=== PATIENT | male | born 1995 | race Caucasian/White ===

== ENCOUNTER 2020-01-13 17:52 | Emergency (ER) | payer BC, SELFPAY ==
[2020-01-13 18:05] VITALS: BP 149/82; PULSE 89; RESP 16; TEMP 37.1; O2SAT 98; BMI 28.1
[2020-01-13 18:13] VITALS: RESP 17
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
[2020-01-13 18:47] VITALS: BP 122/75; PULSE 89; RESP 16; O2SAT 96
== END 2020-01-13 18:47 | disposition home or self-care (01) ==
PROVIDERS: Emergency Provider Nurse Practitioner Family; Family Provider Registered Nurse; PCP Registered Nurse
DX: S39.012A Strain of muscle, fascia and tendon of lower back, initial encounter (principal); F17.200 Nicotine dependence, unspecified, uncomplicated; X58.XXXA Exposure to other specified factors, initial encounter
CPT/HCPCS: 12345; 99282

== ENCOUNTER 2020-05-16 08:07 | Emergency (ER) | payer BC, SELFPAY ==
[2020-05-16 08:14] VITALS: BMI 25.9
[2020-05-16 08:16] VITALS: BP 118/75; PULSE 80; RESP 16; TEMP 36.8; O2SAT 98
--- NOTE | 2020-05-16 09:00 | ED_ITS ---
HPI - Skin/Abscess/Foreign Bdy General: Chief complaint: Skin/Abscess/Foreign Body Stated complaint: RASH ALL OVER Time Seen by Provider: 05/16/20 08:21 Review of Systems General: Reports: 10 or more systems reviewed and unremarkable except in HPI and below Skin/Breast: Reports: rash (lower extremities and upper arms; burning sensation ), pruritus, skin swelling and sores PFSH ED PFSH: Social History Smoking and tobacco status: current every day smoker Physical Exam Const: COMMON NORMALS: no acute distress, patient oriented x3, no limitations and alert GENERAL APPEARANCE: cooperative and comfortable ORIENTATION/CONSCIOUSNESS: Yes awake, Yes oriented to person, Yes oriented to place and Yes oriented to time HENMT: COMMON NORMALS: normocephalic, atraumatic, external ears normal, EAC's normal, TM's normal bilaterally and Normal external nose present HEAD & SCALP: normal to inspection, normocephalic and atraumatic FACE & SINUS: normal facial exam, sinuses nontender and face symmetric NOSE: Normal external nose present, Normal nares present and No nasal discharge present EXTERNAL EAR: Yes external ears normal EXTERNAL AUDITORY CANAL: EAC's normal TYMPANIC MEMBRANE: TM's normal bilaterally MOUTH: Normal oral and palatal mucosa present, lip normal and tongue normal THROAT: posterior oropharynx normal, tonsils normal and uvula midline Eye: COMMON NORMALS: Equal, round and reactive pupils present, EOMs intact bilaterally and conjunctivae normal GENERAL EYE: appearance normal, both eyes and all related structures and normal light reflex EYELID: eyelids normal CONJUNCTIVA: Yes conjunctivae normal PUPIL: Yes Equal, round and reactive pupils present EOM: Yes EOM abnormal DIRECT OPHTHALMOSCOPY: Yes normal light reflex Neck/C-Spine: COMMON NORMALS: full ROM, no lymphadenopathy, supple, no meningeal signs, no JVD and Thyroid normal GENERAL: Yes normal visual inspection THYROID: Thyroid normal CERVICAL SPINE: Yes cervical ROM normal and Yes normal cervical lordosis Lymph: LYMPHATIC: no lymphadenopathy noted Chest: COMMONS NORMALS: normal inspection of the chest and normal palpation of entire chest wall Resp: COMMON NORMALS: normal respiratory effort, No retractions and clear to auscultation bilaterally AUSCULTATION: clear to auscultation bilaterally Cardio: COMMON NORMALS: no JVD, regular rate, regular rhythm, S1 normal heart sound present, S2 normal heart sound present, No gallops present (Cardio), No clicks present (Cardio), No murmurs present (Cardio), No rub (Cardio) and Peripheral pulses 2+ throughout RATE: regular rate RHYTHM: regular rhythm HEART SOUNDS: S1 normal heart sound present and S2 normal heart sound present PERIPHERAL PULSES: Peripheral pulses 2+ throughout GI: COMMON NORMALS: Normal to inspection, nondistended, normoactive bowel sounds present, Soft to palpation, non-tender and no masses PALPATION: Yes Soft to palpation : COMMON NORMALS: Yes no CVA tenderness BLADDER/KIDNEY EXAM: Yes no CVA tenderness Back/Pelvis: COMMON NORMALS: no CVA tenderness, thoracic and lumbar spine normal to inspection, no thoracic nor lumbar tenderness and thoraco-lumbar ROM normal Extremity: COMMON NORMALS: normal to inspection, full ROM, capillary refill normal, no joint enlargement, no clubbing, cyanosis or edema, no calf tenderness and no pedal edema GENERAL: Yes normal exam except as noted Neuro: COMMON NORMALS: patient oriented x3, moves all extremities, no focal motor deficits, no sensory deficits noted and gait normal SENSORIUM/ORIENTATION: Yes alert, Yes oriented to person, Yes oriented to place and Yes oriented to time MENINGEAL SIGNS: Yes no meningeal signs Psych: COMMON NORMALS: mental status grossly normal, Normal thought process present, cooperative, normal affect, speech normal and activity/motor behavior normal SPEECH: Yes normal speech THOUGHT PROCESS: Normal thought process present Skin: COMMON NORMALS: no wounds and turgor normal GENERAL SKIN EXAM: turgor normal RASHES: rashes noted (lower extremities; follicular pustules and flattened lesions on BLE) Course ED course: Pt has been working outside; 4 days ago developed a rash on lower extremities that had a burning sensaton. He covered the area and today presents with a flattened lesion on the right anterior cedeño of the lower leg and follicular pustules. Based on his explanation, I anticipate he was exposed to poison sumac. We will treat accordingly and follow up with dermatology if needed. Vital Signs: Vital signs: Vital Signs Temperature 98.3 F 05/16/20 08:16 Pulse Rate 80 05/16/20 08:16 Respiratory Rate 16 05/16/20 08:16 Blood Pressure 118/75 05/16/20 08:16 Pulse Oximetry 98 05/16/20 08:16 Discharge Plan Discharge Patient Disposition: Home Clinical Impression: Contact dermatitis Condition: Stable Prescriptions: New Medrol (Karri) 4 mg tablets,dose pack See Rx Instructions .ROUTE .COMPLEX Qty: 21 RF: 0 Keflex 250 mg capsule 250 mg PO Q6H 7 Days Qty: 28 RF: 0 Referrals: Bhavana Beltran [Primary Care Provider] - Lizzy Arauz DO [Physician] - Discharge Diet: Usual diet Discharge Activity: Resume usual activity Activity Restrictions/Additional Instructions: Please follow up with Metal Neutralizer if persists after steroids. Likely Poison [place]ac exposure Coding Level of Care Code ED Cable Testers Helper for Josey Arrington
[2020-05-16] MEDS: dexamethasone 10 mg/mL INJ 6 MG IM (09:10)
== END 2020-05-16 09:16 | disposition home or self-care (01) ==
PROVIDERS: Emergency Provider Nurse Practitioner Family; PCP Registered Nurse
DX: L25.9 Unspecified contact dermatitis, unspecified cause (principal); F17.210 Nicotine dependence, cigarettes, uncomplicated
CPT/HCPCS: 12345; 96372; 99281; 99283; J1100

== ENCOUNTER 2021-02-19 21:10 | Emergency (ER) | payer SELFPAY ==
[2021-02-19 21:16] VITALS: BP 156/81; PULSE 77; RESP 18; TEMP 36.9; O2SAT 99; BMI 26.4
--- NOTE | 2021-02-19 22:26 | ED_ITS ---
HPI - Skin/Abscess/Foreign Bdy General: Chief complaint: Skin/Abscess/Foreign Body Stated complaint: L ARM RASH Time Seen by Provider: 02/19/21 21:46 Source: patient Mode of arrival: ambulatory Limitations: no limitations History of Present Illness: HPI narrative: Patient presents to the emergency department with complaints of poison stacia to the left upper extremity and torso. He states got into poison stacia couple of days ago while cutting down some trees. Similar reaction in the past is requesting steroids. MD complaint: rash Location: LUE Severity: moderate Relieving factors: none Exacerbating factors: none Associated symptoms: Reports itching; Deny chills, fever(s), nausea or vomiting Treatments prior to arrival: OTC topical medication Review of Systems General: Reports: 10 or more systems reviewed and unremarkable except in HPI and below Const: Denies: fever(s), chills or diaphoresis Eyes: Denies: blurry vision or eye redness ENMT: Denies: throat pain, dental pain or disequilibrium Card: Denies: chest pain, palpitations or irregular heart rhythm Resp: Denies: dyspnea, productive cough, non-productive cough or wheezing GI: Denies: abdominal pain, nausea or vomiting : Denies: dysuria Musc: Denies: neck pain, back pain, joint pain or joint warmth Skin/Breast: Reports: rash and changes in skin color; Denies: pruritus or skin tenderness Neuro: Denies: headache(s), weakness in extremities or behavioral changes Jarek/Lymph: Denies: easy bruising PFSH ED PFSH: Social History Smoking and tobacco status: current every day smoker Physical Exam Const: COMMON NORMALS: no acute distress, patient oriented x3, healthy appearing and alert GENERAL APPEARANCE: cooperative, comfortable and well hydrated HENMT: COMMON NORMALS: normocephalic, Normal external nose present and moist oral mucous membranes HEAD & SCALP: normocephalic NOSE: Normal external nose present Eye: COMMON NORMALS: Equal, round and reactive pupils present and EOMs intact bilaterally GENERAL EYE: appearance normal, both eyes and all related structures PUPIL: Yes Equal, round and reactive pupils present Neck/C-Spine: COMMON NORMALS: full ROM and no lymphadenopathy GENERAL: Yes normal visual inspection and Yes trachea midline CERVICAL SPINE: Yes cervical ROM normal Lymph: LYMPHATIC: no lymphadenopathy noted Chest: COMMONS NORMALS: normal inspection of the chest Resp: COMMON NORMALS: normal respiratory effort and clear to auscultation bilaterally AUSCULTATION: clear to auscultation bilaterally Cardio: COMMON NORMALS: regular rhythm, S1 normal heart sound present and S2 normal heart sound present RHYTHM: regular rhythm HEART SOUNDS: S1 normal heart sound present and S2 normal heart sound present GI: COMMON NORMALS: Soft to palpation and non-tender INSPECTION: Yes normal to inspection PALPATION: Yes Soft to palpation : COMMON NORMALS: Yes no CVA tenderness BLADDER/KIDNEY EXAM: Yes no CVA tenderness Back/Pelvis: COMMON NORMALS: no CVA tenderness and thoracic and lumbar spine normal to inspection Extremity: COMMON NORMALS: normal to inspection and capillary refill normal Neuro: COMMON NORMALS: patient oriented x3 and no focal motor deficits SENSORIUM/ORIENTATION: Yes alert Psych: COMMON NORMALS: mental status grossly normal, Normal thought process present and cooperative ACTIVITY/MOTOR BEHAVIOR: Yes appropriate eye contact THOUGHT PROCESS: Normal thought process present Skin: COMMON NORMALS: no wounds, turgor normal, no petechiae and no mottling GENERAL SKIN EXAM: turgor normal RASHES: rashes noted (Maculopapular, linear, patchy left upper extremity and torso, pustules ) Course Vital Signs: Vital signs: Vital Signs Temperature 98.5 F 02/19/21 21:16 Pulse Rate 77 02/19/21 21:16 Respiratory Rate 16 02/19/21 22:43 Blood Pressure 156/81 02/19/21 21:16 Pulse Oximetry 99 02/19/21 21:16 MDM - Skin/Abscess/Foreign Bdy Differential Diagnosis: Skin/Abscess Differential Diagnosis: Likely abscess of skin or subcutaneous tissue, urticaria, cellulitis and contact dermatitis Discharge Plan Discharge Patient Disposition: Home Clinical Impression: Poison stacia Contact dermatitis Qualifiers: Contact dermatitis type: allergic Contact dermatitis trigger: other trigger Qualified Code(s): L23.89 - Allergic contact dermatitis due to other agents Condition: Stable Prescriptions: New Medrol (Karri) 4 mg tablets,dose pack See Rx Instructions .ROUTE .COMPLEX Qty: 21 RF: 0 Discontinued methylprednisolone [Medrol (Karri)] 4 mg tablets,dose pack See Rx Instructions .ROUTE .COMPLEX Qty: 21 RF: 0 Discharge Orders: Discharge ED (Routine); Ordered 02/19/21 Ordered By: Franci Hernandez Referrals: Bhavana Beltran [Primary Care Provider] - Discharge Diet: Usual diet Discharge Activity: Resume usual activity Patient Instructions: Poison Stacia (ED), Opioid Safety Activity Restrictions/Additional Instructions: Cool compresses to the rash to help prevent itching Avoid hot showers Continue loratadine 10 mg once daily Take steroids until gone as directed Follow-up with your primary care provider if rash does not improve in the next 48 to 72 hours Coding Level of Care Code ED County Nurse for Chg Fwd Exam Comprehensive
[2021-02-19] MEDS: predniSONE 20 mg Tablet PO (22:39)
[2021-02-19 22:43] VITALS: RESP 16
== END 2021-02-19 22:44 | disposition home or self-care (01) ==
PROVIDERS: Emergency Provider Nurse Practitioner Family; PCP Registered Nurse
DX: L23.7 Allergic contact dermatitis due to plants, except food (principal); L23.89 Allergic contact dermatitis due to other agents; F17.210 Nicotine dependence, cigarettes, uncomplicated
CPT/HCPCS: 99283; J7512

== ENCOUNTER 2021-02-22 17:26 | Emergency (ER) | payer SELFPAY ==
[2021-02-22 18:03] VITALS: BP 132/78; PULSE 71; RESP 16; TEMP 36.5; O2SAT 99
--- NOTE | 2021-02-22 18:21 | XRR_ITS ---
PROCEDURE INFORMATION: Exam: XR Right Hand Exam date and time: 02/22/2021 6:29 PM Age: 25 years old Clinical indication: Injury or trauma; Other: Right hand lac; Work related; Laceration; Injury date: 02/22/2021; Additional info: Laceration to hand TECHNIQUE: Imaging protocol: XR Right hand. Views: 3 or more views. COMPARISON: No relevant prior studies available. FINDINGS: Bones/joints: No fracture or dislocation. Soft tissues: No radiopaque subcutaneous foreign body is seen.. XR/XR hand RT min 3V* [id number] IMPRESSION: No fracture, dislocation or radiopaque subcutaneous foreign body
--- NOTE | 2021-02-22 20:12 | W.ED.WOUNDLC ---
HPI - Wound/Laceration General: Chief Complaint: Wound/Laceration Stated Complaint: R HAND WOUND/LACERATION Time Seen by Provider: 02/22/21 19:25 History of Present Illness: HPI narrative: Patient is a 25-year-old male comes to the ED with laceration on right hand. Laceration is on the dorsal aspect of the right thumb. 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 He then applied pressure and a bandage on laceration to control bleeding and came to the ED. Associated symptoms: Denies chills, fever(s), nausea or vomiting Review of Systems Const: Denies: fever(s), chills or fatigue Eyes: Denies: change in vision or eye discomfort ENMT: Denies: throat pain, odynophagia, nasal discharge or nasal congestion Card: Denies: chest pain, palpitations, edema, swelling of feet/ankles, dyspnea on exertion or orthopnea Resp: Denies: dyspnea, productive cough or non-productive cough GI: Denies: abdominal pain, nausea, vomiting, diarrhea, constipation or hematochezia : Denies: flank pain, difficulty urinating, dysuria or hematuria Musc: Denies: neck pain, back pain or extremity swelling Skin/Breast: Reports: new lesions (laceration on right thumb); Denies: rash Neuro: Denies: headache(s), numbness in extremities or weakness in extremities [facility] ED PFSH: Social History Smoking and tobacco status: current every day smoker Physical Exam Const: COMMON NORMALS: no acute distress, patient oriented x3, healthy appearing and alert GENERAL APPEARANCE: cooperative and comfortable HENMT: COMMON NORMALS: normocephalic HEAD & SCALP: normocephalic MOUTH: Normal oral and palatal mucosa present THROAT: posterior oropharynx normal and uvula midline Neck/C-Spine: COMMON NORMALS: supple GENERAL: Yes normal visual inspection Resp: COMMON NORMALS: normal respiratory effort, No retractions, No use of accessory muscles and clear to auscultation bilaterally AUSCULTATION: clear to auscultation bilaterally Cardio: COMMON NORMALS: regular rate, regular rhythm, S1 normal heart sound present, S2 normal heart sound present, No gallops present (Cardio), No clicks present (Cardio), No murmurs present (Cardio) and Peripheral pulses 2+ throughout RATE: regular rate RHYTHM: regular rhythm HEART SOUNDS: S1 normal heart sound present and S2 normal heart sound present PERIPHERAL PULSES: Peripheral pulses 2+ throughout GI: COMMON NORMALS: Normal to inspection, nondistended, normoactive bowel sounds present, Soft to palpation, non-tender and no masses PALPATION: Yes Soft to palpation : COMMON NORMALS: Yes no CVA tenderness BLADDER/KIDNEY EXAM: Yes no CVA tenderness Back/Pelvis: COMMON NORMALS: no CVA tenderness Extremity: NARRATIVE EXTREMITY EXAM: Right hand dorsal aspect of thumb?1.5 cm superficial flap shaped laceration. No active bleeding. Clean and not contaminated. Neurovascular intact and full range of motion in hand and fingers. GENERAL: Yes normal exam except as noted Neuro: COMMON NORMALS: patient oriented x3 and moves all extremities SENSORIUM/ORIENTATION: Yes alert Skin: NARRATIVE SKIN EXAM: Right hand dorsal aspect of thumb?1.5 cm superficial flap shaped laceration. No active bleeding. Clean and not contaminated. GENERAL SKIN EXAM: dry skin Procedures Laceration Laceration 1: Site: hand (dorsal side of right thumb) Side (If applicable): right Size (cm): 1.5 Description: flap and clean Depth: simple, single layer Local Anesthetic: lidocaine 1% Amount of anesthesia used (mL): 10 Pre-repair: irrigated extensively (With normal saline and cleaned skin with alcohol swab.) Skin layer closed with: vicryl Size (cm): 4-0 Number of sutures: 5 Technique: simple, interrupted Course Vital Signs: Vital signs: Vital Signs Temperature 97.7 F 02/22/21 18:03 Pulse Rate 71 02/22/21 18:03 Respiratory Rate 16 02/22/21 20:20 Blood Pressure 132/78 02/22/21 18:03 Pulse Oximetry 99 02/22/21 18:03 Discharge Plan Discharge Patient Disposition: Home Clinical Impression: Laceration Condition: Stable Prescriptions: New cephalexin 500 mg capsule 500 mg PO Q6H 3 Days Qty: 12 RF: 0 No Action Medrol (Karri) 4 mg tablets,dose pack See Rx Instructions .ROUTE .COMPLEX Qty: 21 RF: 0 Discharge Orders: Discharge ED (Routine); Ordered 02/22/21 Ordered By: Heri Salamanca Referrals: Bhavana Beltran [Primary Care Provider] - Discharge Diet: Regular Discharge Activity: Limit activity as instructed Patient Instructions: Suture Care (ED), Laceration (ED) Activity Restrictions/Additional Instructions: Take full course of antibiotics as prescribed. Keep laceration site clean and dry for the next 48 hours. Then after that you can clean and re-bandage daily. Watch for signs of infection such as redness, warmth, increased tenderness and puslike drainage. If you see the signs of infection return to the ED, urgent care or PCP for reevaluation. call your PCP to schedule a follow-up appointment for reevaluation and suture removal in about 7- 10 days. Take [id number] Tylenol or ibuprofen for any pain.. Follow discharge plans as discussed. You can return to the ED if symptoms worsen. Stand Alone Forms: Work/School Release Coding Level of Care Code ED Assembler Lay Ups for Josey Fwd Exam Comprehensive
[2021-02-22 20:20] VITALS: RESP 16
== END 2021-02-22 20:20 | disposition home or self-care (01) ==
PROVIDERS: Emergency Provider Physician Assistant; PCP Registered Nurse
DX: S61.011A Laceration without foreign body of right thumb without damage to nail, initial encounter (principal); W26.9XXA Contact with unspecified sharp object(s), initial encounter; F17.210 Nicotine dependence, cigarettes, uncomplicated
CPT/HCPCS: 12001; 73130; 99282

== ENCOUNTER 2021-11-18 15:02 | Emergency (ER) | payer SELFPAY ==
--- NOTE | 2021-11-18 15:16 | XR_ITS ---
WS: [id number] LEFT HAND: 3 VIEW(S) TECHNIQUE: PA, oblique and lateral. HISTORY: injury COMPARISON: None available. No acute fracture or dislocation. No soft tissue or bone abnormality. XR/XR hand LT min 3V* [id number] IMPRESSION: Normal LEFT hand.
[2021-11-18 15:34] VITALS: BP 161/86; PULSE 84; RESP 16; TEMP 36.9; O2SAT 100
--- NOTE | 2021-11-18 15:47 | W.ED.WOUNDLC ---
HPI - Wound/Laceration General: Chief Complaint: Wound/Laceration Stated Complaint: LEFT HAND INJURY Time Seen by Provider: 11/18/21 15:47 Source: patient Mode of arrival: ambulatory Limitations: no limitations History of Present Illness: Patient is a 26-year-old male who presents to ED today for evaluation of a left thumb laceration that he sustained just prior to arrival after he cut it on a piece of metal. Tetanus is UTD. Patient maintains full range of motion of his thumb. Onset (ago): hour(s) Extremity Location: Left: hand (L thumb) Place: home Patient tetanus UTD: Yes Context: accidental Associated symptoms: Reports no associated symptoms Review of Systems Musc: Reports: extremity pain (L thumb); Denies: extremity swelling, joint pain, joint swelling or joint redness Skin/Breast: Reports: other (laceration L thumb) PFSH ED PFSH: Social History Smoking and tobacco status: current every day smoker Physical Exam Const: COMMON NORMALS: no acute distress, no limitations, healthy appearing and alert Extremity: GENERAL: Yes normal exam except as noted LEFT UPPER EXTREMITY: Yes hand & digits (pt with small 1cm laceration overlying dorsal interphalangeal joint) Left hand and digits: Yes special tests (no tendon involvement; full ROM; NV intact) Neuro: SENSORIUM/ORIENTATION: Yes alert Course Vital Signs: Vital signs: Vital Signs Temperature 98.5 F 11/18/21 15:34 Pulse Rate 84 11/18/21 15:34 Respiratory Rate 16 11/18/21 15:34 Blood Pressure 161/86 11/18/21 15:34 Pulse Oximetry 100 11/18/21 15:34 MDM - Wound/Laceration Medical Decision Making Laceration copiously irrigated and closed with skin adhesive. Wound care discussed at home. Tetanus is UTD. XR performed in triage was negative. Lab Data Radiology Impressions Hand X-Ray 11/18/21 15:16 IMPRESSION: Normal LEFT hand. Discharge Plan Discharge Patient Disposition: Home Clinical Impression: Laceration of left thumb Qualifiers: Encounter type: initial encounter Damage to nail status: without damage Foreign body presence: without foreign body Qualified Code(s): S61.012A - Laceration without foreign body of left thumb without damage to nail, initial encounter Condition: Stable Prescriptions: No Action Medrol (Karri) 4 mg tablets,dose pack See Rx Instructions .ROUTE .COMPLEX Qty: 21 0RF Rx Instructions: orally per package directions Discharge Orders: Discharge ED (Routine); Ordered 11/18/21 Ordered By: Vicki Ricks Referrals: Bhavana Beltran [Primary Care Provider] - Patient Instructions: Laceration (ED), Skin Adhesive Care (ED) Activity Restrictions/Additional Instructions: Keep wound/laceration clean with warm soap and water twice daily. Monitor for signs of infection such as redness, swelling, increased pain, or drainage. Please seek medical re-evaluation if these occur. If your wound was closed with Steri-Strips or glue/adhesive these will fall off within the next week or so. Coding Level of Care Code ED Employment And Claims Aide for Josey Arrington
== END 2021-11-18 16:01 | disposition home or self-care (01) ==
PROVIDERS: Emergency Provider Physician Assistant; PCP Registered Nurse
DX: S61.012A Laceration without foreign body of left thumb without damage to nail, initial encounter (principal); F17.210 Nicotine dependence, cigarettes, uncomplicated; W26.8XXA Contact with other sharp object(s), not elsewhere classified, initial encounter
CPT/HCPCS: 73130; 99282

== ENCOUNTER 2021-12-31 10:14 | Emergency (ER) | payer SELFPAY ==
[2021-12-31 10:24] VITALS: BP 151/76; PULSE 72; RESP 16; TEMP 36.5; O2SAT 98; BMI 27.5
--- NOTE | 2021-12-31 10:39 | XR_ITS ---
WS: [id number] Right leg including the tibia and fibula, AP and lateral views, 12/31/2021 Clinical Data: pain, bruising Comparison: None. Findings: No fractures or dislocations are seen. The tibia and fibula are intact. The soft tissues are normal. XR/XR tibia fibula RT 2V [id number] Impression: Negative for fracture.
--- NOTE | 2021-12-31 10:46 | W.ED.EXTPRO ---
HPI - Extremity Problem General: Chief complaint: Extremity Injury, Lower Stated complaint: Rt cedeño is purple, hurting pretty bad Time Seen by Provider: 12/31/21 10:25 History of Present Illness: Patient complains about pain and bruising with mild swelling to his distal area of right cedeño. 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 Associated symptoms: Deny chest pain, fever(s) or rash Review of Systems Const: Denies: fever(s), chills or body aches Eyes: Denies: eye discomfort ENMT: Denies: throat pain Card: Denies: chest pain Resp: Denies: dyspnea GI: Denies: abdominal pain, nausea or vomiting Skin/Breast: Reports: erythema (Right distal cedeño medial aspect not sure what caused it was), skin tenderness and skin swelling; Denies: rash Neuro: Denies: headache(s) Psych: Denies: depression or suicidal ideation [facility] ED PFSH: Social History Smoking and tobacco status: current every day smoker Physical Exam Const: COMMON NORMALS: no acute distress, patient oriented x3 and alert HENMT: COMMON NORMALS: normocephalic HEAD & SCALP: normocephalic Eye: COMMON NORMALS: EOMs intact bilaterally Neck/C-Spine: COMMON NORMALS: no JVD Resp: COMMON NORMALS: normal respiratory effort and No use of accessory muscles Cardio: COMMON NORMALS: no JVD GI: INSPECTION: Yes normal to inspection Extremity: COMMON NORMALS: normal to inspection and full ROM RIGHT LOWER EXTREMITY: Yes lower leg (Area of bruising half dollar size with mild erythema about it) Right lower leg: Yes palpation (Tender) Neuro: COMMON NORMALS: patient oriented x3 SENSORIUM/ORIENTATION: Yes alert Psych: COMMON NORMALS: mental status grossly normal Skin: COMMON NORMALS: no rashes or lesions noted GENERAL SKIN EXAM: no rashes or lesions noted Course Vital Signs: Vital signs: Vital Signs Temperature 97.7 F 12/31/21 10:24 Pulse Rate 72 12/31/21 10:24 Respiratory Rate 16 12/31/21 10:24 Blood Pressure 151/76 12/31/21 10:24 Pulse Oximetry 98 12/31/21 10:24 MDM - Extremity (Nontraumatic) Medical Decision Making Bruising to cedeño with some superficial phlebitis/erythema Lab Data Radiology Impressions Tibia/Fibula X-Ray 12/31/21 10:39 Impression: Negative for fracture. Discharge Plan Discharge Patient Disposition: Home Clinical Impression: Bruising Condition: Stable Prescriptions: New cephalexin 500 mg capsule 500 mg PO Q8H 7 Days Qty: 21 0RF Celebrex 100 mg capsule 100 mg PO BID Qty: 20 0RF No Action ibuprofen 200 mg Tablet 800 mg PO Q8H PRN (Reason: Pain) 0RF Claritin 10 mg Tablet 10 mg PO DAILY 0RF Discharge Orders: Discharge ED (Routine); Ordered 12/31/21 Ordered By: Houston Bennett Referrals: Bhavana Beltran [Primary Care Provider] - Discharge Diet: Usual diet Discharge Activity: Resume usual activity Activity Restrictions/Additional Instructions: Follow-up with medical provider as directed. Take medications as prescribed. Return to the ER or your medical provider if condition worsens. Please read and understand discharge instructions. If any questions ask please. Apply moist heat to area as needed. Coding Level of Care Code ED Line Appliance Assembler for Serag Fwd Exam Comprehensive
[2021-12-31 11:25] VITALS: BP 116/72; PULSE 68; TEMP 36.8; O2SAT 98
== END 2021-12-31 11:25 | disposition home or self-care (01) ==
PROVIDERS: Emergency Provider Nurse Practitioner Family; PCP Registered Nurse
DX: S80.11XA Contusion of right lower leg, initial encounter (principal); X58.XXXA Exposure to other specified factors, initial encounter; I80.01 Phlebitis and thrombophlebitis of superficial vessels of right lower extremity; L53.9 Erythematous condition, unspecified; F17.200 Nicotine dependence, unspecified, uncomplicated
CPT/HCPCS: 73590; 99282

== ENCOUNTER 2022-07-11 08:10 | Emergency (ER) | payer SELFPAY ==
[2022-07-11 08:13] VITALS: BP 143/86; PULSE 81; RESP 18; TEMP 36.2; O2SAT 100; BMI 26.9
--- NOTE | 2022-07-11 08:25 | ED_ITS ---
HPI - Allergic Reaction General: Chief complaint: Allergic Reaction Stated complaint: Possible allergic reaction Time Seen by Provider: 07/11/22 08:20 Source: patient Mode of arrival: ambulatory Limitations: no limitations History of Present Illness: HPI narrative: 27-year-old male has history of alpha gal states he has had a rash to his bilateral arms and his groin since Monday. He states quite pruritic in nature states that this is typical for when he gets alpha gal flares. He denies any shortness of breath denies any vomiting diarrhea denies any worsening improving factors. Associated symptoms: Deny abdominal pain, nausea or vomiting Review of Systems Const: Denies: fever(s), chills, body aches or change in appetite Eyes: Denies: blurry vision or eye discomfort ENMT: Denies: throat pain or dental pain Card: Denies: chest pain Resp: Denies: dyspnea GI: Denies: abdominal pain, nausea, vomiting or diarrhea : Denies: dysuria Musc: Denies: neck pain or back pain Skin/Breast: Reports: rash and pruritus Neuro: Denies: headache(s) Psych: Denies: depression Jarek/Lymph: Denies: easy bruising All/Imm: Denies: urticaria PFSH ED PFSH: Medical History No pertinent past medical history Social History Smoking and tobacco status: current every day smoker Physical Exam Const: COMMON NORMALS: no acute distress, patient oriented x3 and healthy appearing HENMT: COMMON NORMALS: normocephalic and atraumatic HEAD & SCALP: normocephalic and atraumatic Eye: COMMON NORMALS: Equal, round and reactive pupils present and EOMs intact bilaterally PUPIL: Yes Equal, round and reactive pupils present Neck/C-Spine: COMMON NORMALS: full ROM and supple Chest: COMMONS NORMALS: normal inspection of the chest and normal palpation of entire chest wall Resp: COMMON NORMALS: normal respiratory effort, No retractions, No use of accessory muscles and clear to auscultation bilaterally AUSCULTATION: clear to auscultation bilaterally Cardio: COMMON NORMALS: regular rate, regular rhythm and No murmurs present (Cardio) RATE: regular rate RHYTHM: regular rhythm GI: COMMON NORMALS: Normal to inspection, nondistended, normoactive bowel sounds present, Soft to palpation, non-tender and no masses PALPATION: Yes Soft to palpation Extremity: COMMON NORMALS: normal to inspection and full ROM Neuro: COMMON NORMALS: patient oriented x3, moves all extremities and no focal motor deficits Psych: COMMON NORMALS: mental status grossly normal, Normal thought process present and cooperative THOUGHT PROCESS: Normal thought process present Skin: NARRATIVE SKIN EXAM: Urticarial rash to bilateral arms along with groin Course Vital Signs: Vital signs: Vital Signs Temperature 97.2 F L 07/11/22 08:13 Pulse Rate 81 07/11/22 08:13 Respiratory Rate 18 07/11/22 08:13 Blood Pressure 143/86 07/11/22 08:13 Pulse Oximetry 100 07/11/22 08:13 Oxygen Delivery Me thod 07/11/22 08:13 MDM - Allergic Reaction Medical Decision Making Patient presents here with a rash likely allergic reaction he is improved here after Benadryl and steroids will prescribe prednisone for home he is to follow- up with PCP and return if worsening. Discharge Plan Discharge Patient Disposition: Home Clinical Impression: Allergic reaction, Rash Condition: Stable Prescriptions: New prednisone 50 mg tablet 50 mg PO DAILY Qty: 5 0RF No Action ibuprofen 200 mg Tablet 800 mg PO Q8H PRN (Reason: Pain) Claritin 10 mg Tablet 10 mg PO DAILY Celebrex 100 mg capsule 100 mg PO BID Qty: 20 0RF Discharge Orders: Discharge ED (Routine); Ordered 07/11/22 Ordered By: Rey Oconnor Referrals: Bhavana Beltran [Primary Care Provider] - 1-3 days Discharge Diet: Advance as tolerated Discharge Activity: Resume usual activity Patient Instructions: Allergic Reaction Coding Level of Care Code ED Technology Development Intern for Chg Fwd Exam Comprehensive
[2022-07-11] MEDS: famotidine 20 mg/2 mL INJ 40 MG IVP (08:33)
[2022-07-11] MEDS: diphenhydrAMINE 50 mg/mL SDV 1mL IVP (08:33)
[2022-07-11 09:15] VITALS: BP 132/78; PULSE 65; RESP 14; TEMP 36.7; O2SAT 95
== END 2022-07-11 09:17 | disposition home or self-care (01) ==
PROVIDERS: Emergency Provider Emergency Medicine; PCP Registered Nurse
DX: R21 Rash and other nonspecific skin eruption (principal); T78.40XA Allergy, unspecified, initial encounter; F17.210 Nicotine dependence, cigarettes, uncomplicated
CPT/HCPCS: 96374; 96375; 99284; J1200; J2930; J3490